=== PATIENT | male | born 1970 | race Caucasian/White ===

== ENCOUNTER 2017-05-14 11:55 | Inpatient (IN) ==
[2017-05-14] MEDS ORDERED: SODIUM CHLORIDE 0.9% 1,000 ML IV STA ×2 (12:19→14:53)
--- NOTE | 2017-05-14 12:23 | EKG Report ---
Stationary ECG Study [facility] ER Test Date: 05/14/2017 12:14:54 PM Pat Name: VEE MACHADO Department: Room: Gender: M Hospital Insurance Clerk: : 1970 Requested by: Jose Eldridge Order Number: [id number] Reading MD: VEGA FRIAS Intervals [place] Rate: 80 P: 52 SC: 158 QRS: 67 QRSD: 86 T: 38 QT: 339 QTc: 375 Interpretive Statements SINUS RHYTHM LOW QRS VOLTAGE IN PRECORDIAL LEADS Electronically Signed On 05-16-17 07:23:30 CDT by VEGA FRIAS [email or web address]
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
[2017-05-14 12:37] LABS: Basophils # 0.1 10*3/uL (0.0-0.2); Basophils % 0.5 % (0.0-0.8); Eosinophils # 0.6 10*3/uL (0.0-0.87); Eosinophils % 5.1 % (0.00-10.9); Hemoglobin 13.1 GM/DL (14.0-18.0); Immature Granulocytes % 0.4 %; Immature Granulocytes Absolute 0.05 #; Lymphocytes # 1.5 10*3/uL (1.4-4.0); Lymphocytes % 13.1 % (21.2-54.2); Mean Corpuscular HGB Conc 32.8 GM/DL (32-36); Mean Corpuscular Hemoglobin 28 PG (27-34); Mean Corpuscular Volume 84.7 FL (87-102); Mean Platelet Volume 10.5 FL (9.6-12.0); Monocytes # 0.7 10*3/uL (0.11-0.8); Neutrophils # 8.8 10*3/uL (1.4-7.4); Neutrophils % 74.9 % (38.7-73.9); Platelet Count 261 T/CUMM (130-400); Red Blood Count 4.72 MC/CUMM (3.8-5.5); Red Cell Distribution Width 15.9 % (9.3-17.3); White Blood Count 11.7 T/CUMM (4-12)
--- NOTE | 2017-05-14 12:43 | XRay Report ---
History: Shortness of breath Date: 05/14/2017 Study: Chest x-ray AP portable Comparison exam: August 26, 2016 The cardiac silhouette is upper normal in size. There is no mediastinal mass. The pulmonary vasculature is not engorged. There is no pleural effusion. There is a chronic lung nodule in the lingula which was noted be significantly calcified on the July 22, [address] There is no new mass or infiltrate. Osseous structures are unchanged. Impression: No acute process compared to the previous study. Chronic lingular lung nodule which was shown to be significantly calcified on the 2013 CT chest PROCEDURE INTERPRETED AT [facility] DEPARTMENT OF RADIOLOGY Final Report Signed by: Dr. Hina Orlando
[2017-05-14 13:15] LABS: Alanine Aminotransferase 11 U/L (16-61); Albumin 3.3 G/DL (3.4-5.0); Alkaline Phosphatase 107 U/L (45-117); Aspartate Amino Transferase 8 U/L (0-37); Bilirubin,Total < 0.39 MG/DL (0.2-1.0); Blood Urea Nitrogen 51 MG/DL (7-18); Calcium 8.6 MG/DL (8.5-10.1); Glucose 185 MG/DL (74-106); Magnesium 2.6 MG/DL (1.8-2.4); Osmolality,Calculated 288.1 MOS/KG (273-304); Potassium 4.6 MMOL/L (3.5-5.1); Sodium 135 MMOL/L (136-145); Total Protein 7.1 G/DL (6.4-8.3); Troponin I Only < 0.015 NG/ML (0.00-0.045)
[2017-05-14] MEDS ORDERED: cefTRIAXone 2,000 MG in SODIUM CHLORIDE 0.9% 100 ML IV ONE (13:45)
[2017-05-14] MEDS ORDERED: cefTRIAXone 1,000 MG VIAL ONE (13:45)
[2017-05-14 14:21] LABS: Apearance,Urine CLEAR (Clear); Bilirubin,Urine Negative (Negative); Blood, Urine Moderate mg/dL (Negative); Glucose,Urine (UA) Negative (Negative); Hyaline Casts,Urine 8 /LPF (0-3); Ketones,Urine Negative (Negative); Mucus,Urine Occasional /LPF (Occasional); Nitrite,Urine Negative (Negative); Protein,Urine Negative; RBC,Urine <1 /HPF (0-4); Urine Color Yellow (Yellow); Urine Specific Gravity 1.015 (1.001-1.035); Urine Urobilinogen < 2.0 EU/DL (0.2-1.0); WBC,Urine 1 /HPF (0-6)
[2017-05-14 15:03] LABS: Barbiturates Screen,Urine Negative (Negative); Benzodiazepines Screen,Urine Negative (Negative); Cannabinoid Screen,Urine Negative (Negative); Opiate Screen,Urine Positive (Negative); Phencyclidine Screen,Urine Negative (Negative)
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
[2017-05-14] MEDS ORDERED: GLUCAGON 1 MG VIAL IM PRN ×2 (15:25→16:31)
[2017-05-14] MEDS ORDERED: DEXTROSE 50% 25 GM/50 ML VIAL IV PRN (15:25)
[2017-05-14] MEDS ORDERED: DEXTROSE 50% 25 GM/50 ML SYRINGE IV PRN ×2 (16:00→16:31)
[2017-05-14] MEDS ORDERED: ACETAMINOPHEN 325 MG TABLET PO PRN (16:31)
[2017-05-14] MEDS ORDERED: ALBUTEROL 2.5 MG/3 ML NEB RESP TX PRN ×2 (16:31→19:00)
[2017-05-14] MEDS ORDERED: NICOTINE 21 MG/24 HR PATCH TRANSDERM PRN (16:31)
[2017-05-14] MEDS ORDERED: ONDANSETRON 4 MG/2 ML VIAL IV PRN (16:31)
[2017-05-14] MEDS: SODIUM CHLORIDE 0.9% 1,000 ML IV SCH ×2 (16:57→21:24)
[2017-05-14] MEDS ORDERED: ALBUTEROL 2.5 MG/3 ML NEB RESP TX SCH (17:00)
[2017-05-14] MEDS: INSULIN LISPRO 100 UNIT/ML SUBCUT SCH ×2 (17:06→21:22)
[2017-05-14] MEDS: ALBUTEROL 2.5 MG/3 ML NEB RESP TX SCH (19:54)
[2017-05-15] MEDS: SODIUM CHLORIDE 0.9% 1,000 ML IV SCH ×5 (02:24→17:47)
[2017-05-15 05:35] LABS: Basophils # 0.1 10*3/uL (0.0-0.2); Basophils % 0.8 % (0.0-0.8); Eosinophils # 0.4 10*3/uL (0.0-0.87); Eosinophils % 4.5 % (0.00-10.9); Hemoglobin 11.9 GM/DL (14.0-18.0); Immature Granulocytes % 0.3 %; Immature Granulocytes Absolute 0.03 #; Lymphocytes # 1.7 10*3/uL (1.4-4.0); Mean Corpuscular HGB Conc 32.2 GM/DL (32-36); Mean Corpuscular Hemoglobin 28 PG (27-34); Mean Corpuscular Volume 85.6 FL (87-102); Mean Platelet Volume 10.6 FL (9.6-12.0); Monocytes # 0.7 10*3/uL (0.11-0.8); Neutrophils % 67.4 % (38.7-73.9); Platelet Count 222 T/CUMM (130-400); Red Blood Count 4.32 MC/CUMM (3.8-5.5); Red Cell Distribution Width 15.9 % (9.3-17.3)
[2017-05-15 06:02] LABS: Lactic Acid 0.6 MMOL/L (0.4-2.0)
[2017-05-15 06:10] LABS: Calcium 8.2 MG/DL (8.5-10.1); Magnesium 2.3 MG/DL (1.8-2.4); Osmolality,Calculated 287.4 MOS/KG (273-304); Potassium 5.2 MMOL/L (3.5-5.1); Risk Ratio 4.35; Thyroid Stimulating Hormone 0.577 uIU/ml (0.358-3.74); VLDL CHOLESTEROL 47.4 MG/DL
[2017-05-15 07:05] LABS: Free T4 (Free Thyroxine) 0.93 NG/DL (0.76-1.46)
[2017-05-15] MEDS: INSULIN LISPRO 100 UNIT/ML SUBCUT SCH ×3 (07:44→17:46)
[2017-05-15] MEDS: ALBUTEROL 2.5 MG/3 ML NEB RESP TX SCH ×4 (07:49→19:04)
[2017-05-15 08:29] LABS: HIV Antigen/Antibody Result Nonreactive (Nonreactive)
[2017-05-15] MEDS: PANTOPRAZOLE 40 MG TABLET PO SCH (08:39)
[2017-05-15] MEDS: FLUoxetine 20 MG CAPSULE PO SCH (08:39)
[2017-05-15] MEDS ORDERED: PANTOPRAZOLE 40 MG TABLET PO SCH (09:00)
--- NOTE | 2017-05-15 09:42 | Hospitalist Progress Note ---
Assessment and Plan (1) Acute renal failure Status: Acute Assessment and plan: Serum creatinine and BUN are improving. Azotemia seems to be prerenal but I suspect there may be an incipient chronic kidney disease. This was verification. She does have a history of chronic hepatitis C which can result in vasculitis can cause renal insufficiency. Current Visit: No (2) Hepatitis C Status: Chronic Assessment and plan: 7 ongoing chronic problem being evaluated outpatient for treatment according to the patient. Current Visit: No (3) Hypovolemia dehydration Status: Acute Assessment and plan: Patient has had aggressive crystalloids infusions. He has demonstrated effective response. Current Visit: Yes (4) Syncopal episodes Status: Acute Assessment and plan: Subjective information given to dialysis suspicious for neurogenic syncope is. I wonder if seizure activity is not involved here. Intracranial space- occupying pathology is also possibility. For this reason neurology consultation is on the chart as well as an order for MRI of the brain. If the creatinine improves below 1.5 we can do a gadolinium MRI of if not then will do MRI without contrast. Continue telemetry monitoring for possibility of cardiogenic syncope. Current Visit: Yes (5) Hypotension Status: Acute Assessment and plan: Blood pressures have improved we will reduce IV fluids 200 mL/h using normal saline. Transfer patient to telemetry floor. Current Visit: Yes Hospitalist: Subjective Interval history: Patient has been seen interviewed and examined and chart has been reviewed. Mr. Crandall was admitted yesterday through the emergency room with a history of recurrent syncopal episodes. This has happened when he standing up there is no associated lightheadedness is associated nausea he does have it at times when he is driving. He acknowledges loss of consciousness. There is possibility this is a seizure activities. Mr. Crandall is a very heavy smoker history of heavy alcohol consumption several multiple tattoos on his body not sure about his HIV status. He has in the past been admitted to the hospital with a positive tox screen including amphetamines. Today his blood pressure is optimal with a mean arterial pressure around 70s. He was quite hypotensive on admission in the emergency room. His history of having been exposed to extremely hot environments a couple days prior to coming in so heat exhaustion is a possible contributor to the current issues though recurrent syncopal episodes in the history. He was admitted with an elevated creatinine of 0.3 yesterday she is down to 2.1 today. His total CK was only 144 yesterday; which rules out rhabdomyolysis. His blood pressures were low with mean arterial pressures well below 65 mmHg. Blood pressures responded to crystalloid infusion. Current blood pressure is 115/70 with mean arterial pressure of 85 mmHg. He is stable enough to be transferred to the [facility] for further evaluation and management and monitoring. MRI of the brain is been ordered and neurology consultation is also been ordered (to be seen tomorrow.) Exam - Constitutional Vitals: Period Temp Pulse Resp BP Sys/[place] Pulse Ox Last 24 Hr 97.9 F-98.3 F 64-75 15-96 71-119/40-76 93-98 General appearance: no acute distress, over weight - Head Head exam: Present: normocephalic, atraumatic - Eye Eye exam: Present: EOMI Pupils: Present: HERMILA - ENT ENT exam: Present: normal oropharynx - Respiratory Respiratory exam: Present: clear to auscultation bilaterally - Cardiovascular Cardiovascular exam: Present: regular rate and rhythm - GI/Abdominal GI/Abdominal exam: Present: normal bowel sounds, soft - Extremities Exam Extremities exam: Present: full ROM - Neurological Exam Neurological exam: Present: alert, oriented X3, CN II-XII intact - Psychiatric Psychiatric exam: Present: normal affect, normal mood - Skin Skin exam: Present: normal color, warm, dry, other (Patient has multiple tattoos on his body) Results - Labs CBC & BMP: 05/15/17 05:00 05/15/17 05:00 Lab Results: I have reviewed the past 24 hour labs (Noted a significant improvement in BUN and creatinine)
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
[2017-05-15 16:50] LABS: Apearance,Urine CLEAR (Clear); Bilirubin,Urine Negative (Negative); Blood, Urine Small mg/dL (Negative); Glucose,Urine (UA) Negative (Negative); Ketones,Urine Negative (Negative); Mucus,Urine Occasional /LPF (Occasional); Nitrite,Urine Negative (Negative); Protein,Urine Negative; Urine Color Colorless (Yellow); Urine Specific Gravity 1.006 (1.001-1.035); Urine Urobilinogen < 2.0 EU/DL (0.2-1.0); WBC,Urine <1 /HPF (0-6)
[2017-05-16] MEDS: INSULIN LISPRO 100 UNIT/ML SUBCUT SCH ×2 (00:23→08:19)
[2017-05-16] MEDS: SODIUM CHLORIDE 0.9% 1,000 ML IV SCH ×3 (00:25→10:17)
[2017-05-16 04:59] LABS: Basophils # 0.1 10*3/uL (0.0-0.2); Basophils % 0.6 % (0.0-0.8); Eosinophils # 0.4 10*3/uL (0.0-0.87); Eosinophils % 4.4 % (0.00-10.9); Hematocrit 40.5 VOL% (42.0-52.0); Hemoglobin 13.3 GM/DL (14.0-18.0); Immature Granulocytes % 0.3 %; Immature Granulocytes Absolute 0.02 #; Lymphocytes # 1.4 10*3/uL (1.4-4.0); Lymphocytes % 17.3 % (21.2-54.2); Mean Corpuscular HGB Conc 32.8 GM/DL (32-36); Mean Corpuscular Hemoglobin 28 PG (27-34); Mean Corpuscular Volume 83.7 FL (87-102); Mean Platelet Volume 10.1 FL (9.6-12.0); Monocytes # 0.5 10*3/uL (0.11-0.8); Monocytes % 6.3 % (1.7-12.7); Neutrophils # 5.6 10*3/uL (1.4-7.4); Neutrophils % 71.1 % (38.7-73.9); Platelet Count 223 T/CUMM (130-400); Red Blood Count 4.84 MC/CUMM (3.8-5.5); Red Cell Distribution Width 15.4 % (9.3-17.3); White Blood Count 7.9 T/CUMM (4-12)
[2017-05-16 05:33] LABS: Calcium 8.6 MG/DL (8.5-10.1); Magnesium 1.5 MG/DL (1.8-2.4); Osmolality,Calculated 282.3 MOS/KG (273-304); Potassium 4.7 MMOL/L (3.5-5.1)
[2017-05-16] MEDS: ALBUTEROL 2.5 MG/3 ML NEB RESP TX SCH (07:24)
[2017-05-16] MEDS ORDERED: PNEUMOCOCCAL VACCINE (23 VALENT) 0.5 ML VIAL IM ONE (08:00)
[2017-05-16 08:16] VITALS: BP 144/91
[2017-05-16] MEDS: FLUoxetine 20 MG CAPSULE PO SCH (08:31)
--- NOTE | 2017-05-16 08:31 | Nephrology Progress Note ---
Nephrology - PN: Subj Interval history: Creatinine 1.0. Elevated creatinine 2' prerenal azotemia. Exam (PN)-Nephrology - Vital Signs Vital signs: Period Temp Pulse Resp BP Sys/[place] Pulse Ox Last 24 Hr 97.5 F-99.4 F 63-112 16-22 129-144/70-91 91-99 - General Appearance General appearance: well-developed, well-nourished EENT: ATNC, PERRL Neck: no JVD, no thyromegaly Respiratory: no kyphosis, clear Cardiology: no murmurs, no rub Gastrointestinal: normoactive bowel sounds, no tenderness Integumentary: no rash, warm and dry Neurologic: no focal deficit, no asterixis Musculoskeletal: no deformities, no erythema Psychiatric: mood/affect appropriate, cooperative - Lab 05/16/17 04:47 05/16/17 04:47 Most recent lab results Calcium 8.6 MG/DL (8.5-10.1) 05/16/17 04:47 Magnesium 1.5 MG/DL (1.8-2.4) L 05/16/17 04:47 Assessment and Plan (1) Prerenal azotemia Problem details: resolving with volume resuscitation. Status: Resolved Assessment and plan: WIll sign off for now. Please call for any questions or concerns. Current Visit: Yes (2) Cystic kidney disease Status: Chronic Current Visit: No (3) Hepatitis C Status: Chronic Current Visit: No
[2017-05-16] MEDS: PANTOPRAZOLE 40 MG TABLET PO SCH (08:32)
--- NOTE | 2017-05-16 11:22 | Hospitalist Progress Note ---
Assessment and Plan (1) Acute renal failure Status: Acute Assessment and plan: This is purely acute kidney injury patient's renal function has resolved to a normal creatinine at this point. I have informed patient of these. Most likely is dehydration. (2) Hepatitis C Status: Chronic Assessment and plan: Planning on treatment on an outpatient. (3) Hypovolemia dehydration Status: Acute Assessment and plan: Resolved (4) Syncopal episodes Status: Acute Assessment and plan: Such events in the hospital however given the history of recurrent multiple events of like him to be seen by neurology does have an MRI of the brain done. (5) Hypotension Status: Acute Assessment and plan: Blood pressures been good Hospitalist: Subjective Interval history: Patient has been seen interviewed and examined chart has been reviewed. He is doing very well however this gentleman has a history of recurrent syncopal episodes was admitted to the hospital with acute kidney injury that has resolved with creatinine now normal. Because of recurrent syncopal episodes that I suspect the neurogenic in nature I want him to be seen by a neurologist I want to do an MRI of his brain today. He has agreed to have that done. Exam - Constitutional Vitals: Period Temp Pulse Resp BP Sys/Nogueira Pulse Ox Last 24 Hr 97.5 F-99.4 F 70-112 16-20 130-144/70-91 91-99 General appearance: over weight - Head Head exam: Present: normocephalic, atraumatic - Eye Eye exam: Present: EOMI Pupils: Present: HERMILA - Cardiovascular Cardiovascular exam: Present: regular rate and rhythm - GI/Abdominal GI/Abdominal exam: Present: normal bowel sounds, soft - Extremities Exam Extremities exam: Present: full ROM - Neurological Exam Neurological exam: Present: alert, oriented X3, CN II-XII intact - Psychiatric Psychiatric exam: Present: normal affect, normal mood - Skin Skin exam: Present: normal color, warm, dry Results - Labs CBC & BMP: 05/16/17 04:47 05/16/17 04:47 Lab Results: I have reviewed the past 24 hour labs
--- NOTE | 2017-05-16 11:36 | Event Note ---
Patient left AGAINST MEDICAL ADVICE (AMA)/discharge summary: Mr. Crandall is a 46 a gentleman admitted to the hospital with a syncopal episode one of many history of heat exposure 2 days prior to admission acute kidney injury and hypotension. With dehydration blood pressure came up and his urine output picked up his creatinine is was normal this morning. Because of recurrent syncopal episodes without any evidence of dysrhythmias on the monitor here my plan was to have him seen by a neurologist and have an MRI of the brain done. He agreed to have this done this morning however all of a sudden decided he has had enough of stating he wants to go home. I believe this gentleman needs evaluation for these recurrent syncopal episode that he reported on admission and aware acknowledged by his family member was in the room at the time of admission. She does left AGAINST MEDICAL ADVICE this will be the discharge summary for him. I refired to the progress note from this morning for details of his clinical picture. No contribution to his discharge medications and discharge plan; because patient left AGAINST MEDICAL ADVICE
[2017-05-17 12:06] LABS: HCV Ab Scrn w/Reflex to HCV PC Reactive (Negative)
[2017-05-19 16:48] LABS: Hepatitis C RNA Detect/Quant Undetected IU/mL (Undetected)
== END 2017-05-16 10:00 | disposition left against medical advice (07) | DRG 469 ==
LOC: N.ED 11:55 → N.EDINP 15:09 → N.ICU 16:29 → N.TELEN 05-15 10:43
PROVIDERS: ADMIT Internal Medicine Infectious Disease; ATTEND Internal Medicine Infectious Disease

== ENCOUNTER 2018-08-13 17:51 | Inpatient (IN) ==
[2018-08-13 18:28] LABS: Basophils # 0.1 10*3/uL (0.0-0.2); Basophils % 0.4 % (0.0-0.8); Eosinophils # 0.4 10*3/uL (0.0-0.87); Eosinophils % 3.7 % (0.00-10.9); Hematocrit 35.3 VOL% (42.0-52.0); Hemoglobin 10.7 GM/DL (14.0-18.0); Immature Granulocytes % 0.6 %; Immature Granulocytes Absolute 0.07 #; Lymphocytes # 1.1 10*3/uL (1.4-4.0); Lymphocytes % 9.4 % (21.2-54.2); Mean Corpuscular HGB Conc 30.3 GM/DL (32-36); Mean Corpuscular Hemoglobin 28 PG (27-34); Mean Platelet Volume 10.4 FL (9.6-12.0); Monocytes # 0.9 10*3/uL (0.11-0.8); Monocytes % 7.5 % (1.7-12.7); Neutrophils # 9.3 10*3/uL (1.4-7.4); Neutrophils % 78.4 % (38.7-73.9); Platelet Count 258 T/CUMM (130-400); Red Blood Count 3.88 MC/CUMM (3.8-5.5); Red Cell Distribution Width 15.9 % (9.3-17.3); White Blood Count 11.8 T/CUMM (4-12)
[2018-08-13 18:44] LABS: Alanine Aminotransferase 14 U/L (16-61); Albumin 3.5 G/DL (3.4-5.0); Alkaline Phosphatase 108 U/L (45-117); Amylase 52 U/L (25-115); Aspartate Amino Transferase 10 U/L (0-37); Bilirubin,Total < 0.39 MG/DL (0.2-1.0); Blood Urea Nitrogen 50 MG/DL (7-18); Calcium 8.8 MG/DL (8.5-10.1); Glucose 113 MG/DL (74-106); Osmolality,Calculated 296.1 MOS/KG (273-304); Sodium 142 MMOL/L (136-145); Total Protein 8.1 G/DL (6.4-8.3)
[2018-08-13 18:52] LABS: Potassium 6.1 MMOL/L (3.5-5.1)
[2018-08-13 19:52] LABS: INR 0.9; PT Patient Result 9.8 SECS; Partial Thromboplastin Time 28.4 SECS (0-40)
[2018-08-13] MEDS ORDERED: CALCIUM CHLORIDE 1,000 MG/10 ML SYRINGE IV STA (20:01)
[2018-08-13] MEDS ORDERED: ALBUTEROL NEB SOLN 5 MG/ML 20 ML/BOTTLE CONT NEB STA (20:01)
[2018-08-13] MEDS ORDERED: ONDANSETRON 4 MG/2 ML VIAL IV PRN (23:49)
[2018-08-13] MEDS ORDERED: GLUCAGON 1 MG VIAL IM PRN (23:49)
[2018-08-13] MEDS ORDERED: DEXTROSE 50% 25 GM/50 ML VIAL IV PRN (23:49)
[2018-08-14] MEDS ORDERED: BACLOFEN 10 MG TABLET PO PRN
[2018-08-14] MEDS ORDERED: ALBUTEROL 2.5 MG/3 ML NEB RESP TX PRN
[2018-08-14] MEDS ORDERED: QUEtiapine 100 MG TABLET PO SCH (00:30)
[2018-08-14 01:13] LABS: Apearance,Urine CLEAR (Clear); Bilirubin,Urine Negative (Negative); Blood, Urine Negative (Negative); Glucose,Urine (UA) Negative (Negative); Hyaline Casts,Urine 13 /LPF (0-3); Ketones,Urine Negative (Negative); Nitrite,Urine Negative (Negative); Protein,Urine Negative; Squamous Epithelial Cell,Urine Occasional /HPF (0-10); Urine Color Yellow (Yellow); Urine Specific Gravity 1.013 (1.001-1.035); Urine Urobilinogen < 2.0 EU/DL (0.2-1.0)
[2018-08-14] MEDS: SODIUM CHLORIDE 0.9% 1,000 ML IV SCH ×3 (01:15→17:20)
[2018-08-14 01:25] LABS: Barbiturates Screen,Urine Negative (Negative); Benzodiazepines Screen,Urine Negative (Negative); Cannabinoid Screen,Urine Negative (Negative); Opiate Screen,Urine Positive (Negative); Phencyclidine Screen,Urine Negative (Negative)
[2018-08-14] MEDS ORDERED: INFLUENZA VIRUS VACCINE 0.5 ML SYRINGE IM ONE (01:25)
[2018-08-14] MEDS: ALBUTEROL/IPRATROPIUM 3 ML NEB RESP TX SCH ×5 (01:38→18:30)
[2018-08-14 04:47] LABS: Basophils % 0.3 % (0.0-0.8); Eosinophils # 0.2 10*3/uL (0.0-0.87); Eosinophils % 1.9 % (0.00-10.9); Hematocrit 28.2 VOL% (42.0-52.0); Hemoglobin 8.4 GM/DL (14.0-18.0); Immature Granulocytes % 0.6 %; Immature Granulocytes Absolute 0.08 #; Lymphocytes # 0.8 10*3/uL (1.4-4.0); Lymphocytes % 6.1 % (21.2-54.2); Mean Corpuscular HGB Conc 29.8 GM/DL (32-36); Mean Corpuscular Hemoglobin 27 PG (27-34); Mean Platelet Volume 10.2 FL (9.6-12.0); Monocytes # 0.8 10*3/uL (0.11-0.8); Monocytes % 6.4 % (1.7-12.7); Neutrophils # 10.9 10*3/uL (1.4-7.4); Neutrophils % 84.7 % (38.7-73.9); Platelet Count 199 T/CUMM (130-400); Red Cell Distribution Width 15.9 % (9.3-17.3); White Blood Count 12.9 T/CUMM (4-12)
[2018-08-14 04:48] LABS: Basophils % 0.3 % (0.0-0.8); Eosinophils # 0.2 10*3/uL (0.0-0.87); Eosinophils % 1.8 % (0.00-10.9); Hematocrit 28.6 VOL% (42.0-52.0); Hemoglobin 8.3 GM/DL (14.0-18.0); Immature Granulocytes % 0.6 %; Immature Granulocytes Absolute 0.07 #; Lymphocytes # 0.7 10*3/uL (1.4-4.0); Lymphocytes % 5.8 % (21.2-54.2); Mean Corpuscular Hemoglobin 27 PG (27-34); Mean Corpuscular Volume 91.4 FL (87-102); Mean Platelet Volume 10.6 FL (9.6-12.0); Monocytes # 0.8 10*3/uL (0.11-0.8); Neutrophils # 10.7 10*3/uL (1.4-7.4); Neutrophils % 85.5 % (38.7-73.9); Platelet Count 203 T/CUMM (130-400); Red Blood Count 3.13 MC/CUMM (3.8-5.5); Red Cell Distribution Width 15.9 % (9.3-17.3); White Blood Count 12.5 T/CUMM (4-12)
[2018-08-14 05:04] LABS: Calcium 7.8 MG/DL (8.5-10.1); Osmolality,Calculated 292.1 MOS/KG (273-304); Potassium 5.5 MMOL/L (3.5-5.1)
[2018-08-14 05:08] LABS: % Iron Saturation 5.2 % (18-50); Ferritin 80.3 ng/ml (26-388)
[2018-08-14 05:24] LABS: Vitamin B12 289 PG/ML (211-911)
[2018-08-14] MEDS: INSULIN LISPRO 100 UNIT/ML SUBCUT SCH ×4 (07:29→21:14)
[2018-08-14] MEDS: LACTULOSE 20 GM/30 ML UDCUP PO SCH ×3 (07:29→17:20)
[2018-08-14 08:29] LABS: Sedimentation Rate-Westergren 51 MM/HR (0-15)
[2018-08-14] MEDS: GEMFIBROZIL 600 MG TABLET PO SCH ×2 (08:38→16:02)
[2018-08-14] MEDS: METOPROLOL SUCCINATE XL 50 MG TABLET PO SCH (08:38)
[2018-08-14] MEDS: amLODIPine 10 MG TABLET PO SCH (08:38)
[2018-08-14] MEDS ORDERED: FUROSEMIDE 40 MG/4 ML VIAL IV SCH (16:00)
[2018-08-14] MEDS: FUROSEMIDE 40 MG/4 ML VIAL IV SCH (16:13)
[2018-08-14] MEDS: PIPERACILLIN/TAZOBACTAM 3,375 MG in SODIUM CHLORIDE 0.9% 100 ML IV SCH (18:18)
[2018-08-14] MEDS: SODIUM HYPOCHLORITE 0.25% IRRIG 473 ML BOTTLE TOP SCH (21:14)
[2018-08-15] MEDS: SODIUM CHLORIDE 0.9% 1,000 ML IV SCH ×2 (01:20→23:08)
[2018-08-15] MEDS: LACTULOSE 20 GM/30 ML UDCUP PO SCH ×4 (01:30→17:18)
[2018-08-15] MEDS: PIPERACILLIN/TAZOBACTAM 3,375 MG in SODIUM CHLORIDE 0.9% 100 ML IV SCH ×3 (02:14→16:30)
[2018-08-15 05:27] LABS: Bilirubin,Total 0.4 MG/DL (0.2-1.0); Osmolality,Calculated 281.7 MOS/KG (273-304); Potassium 4.9 MMOL/L (3.5-5.1); Total Protein 7.8 G/DL (6.4-8.3)
[2018-08-15 06:03] LABS: Basophils # 0.1 10*3/uL (0.0-0.2); Basophils % 0.5 % (0.0-0.8); Eosinophils # 0.3 10*3/uL (0.0-0.87); Eosinophils % 2.6 % (0.00-10.9); Hematocrit 36.4 VOL% (42.0-52.0); Immature Granulocytes % 2.1 %; Immature Granulocytes Absolute 0.26 #; Lymphocytes # 1.3 10*3/uL (1.4-4.0); Lymphocytes % 10.7 % (21.2-54.2); Mean Corpuscular HGB Conc 30.5 GM/DL (32-36); Mean Corpuscular Hemoglobin 27 PG (27-34); Mean Corpuscular Volume 87.3 FL (87-102); Mean Platelet Volume 10.1 FL (9.6-12.0); Monocytes # 0.8 10*3/uL (0.11-0.8); Monocytes % 6.2 % (1.7-12.7); Neutrophils # 9.6 10*3/uL (1.4-7.4); Neutrophils % 77.9 % (38.7-73.9); Red Cell Distribution Width 15.8 % (9.3-17.3); White Blood Count 12.4 T/CUMM (4-12)
[2018-08-15 06:06] LABS: Hemoglobin 11.1 GM/DL (14.0-18.0); Platelet Count 274 T/CUMM (130-400); Red Blood Count 4.17 MC/CUMM (3.8-5.5)
[2018-08-15] MEDS: ALBUTEROL/IPRATROPIUM 3 ML NEB RESP TX SCH ×4 (07:20→20:00)
[2018-08-15] MEDS: INSULIN LISPRO 100 UNIT/ML SUBCUT SCH ×4 (08:07→22:21)
[2018-08-15] MEDS: METOPROLOL SUCCINATE XL 50 MG TABLET PO SCH (08:08)
[2018-08-15] MEDS: amLODIPine 10 MG TABLET PO SCH (08:08)
[2018-08-15] MEDS: FUROSEMIDE 40 MG/4 ML VIAL IV SCH (08:09)
[2018-08-15] MEDS: SODIUM HYPOCHLORITE 0.25% IRRIG 473 ML BOTTLE TOP SCH ×2 (08:09→22:21)
[2018-08-15] MEDS: GEMFIBROZIL 600 MG TABLET PO SCH ×2 (08:09→17:07)
[2018-08-15] MEDS ORDERED: PANTOPRAZOLE 40 MG VIAL IV ONE (08:27)
[2018-08-15] MEDS ORDERED: LIDOCAINE 1% 20 ML VIAL ONE (14:49)
[2018-08-15] MEDS ORDERED: PROPOFOL 200 MG/20 ML VIAL IV ONE (17:32)
[2018-08-15] MEDS ORDERED: MIDAZOLAM 2 MG/2 ML VIAL ONE (17:33)
[2018-08-15] MEDS ORDERED: fentaNYL 100 MCG/2 ML VIAL ONE (17:33)
[2018-08-15] MEDS ORDERED: SEVOFLURANE 1 UNIT/15 MINUTE INH ONE (17:33)
[2018-08-15] MEDS ORDERED: ONDANSETRON 4 MG/2 ML VIAL ONE (17:33)
[2018-08-16] MEDS: LACTULOSE 20 GM/30 ML UDCUP PO SCH ×4 (00:38→17:53)
[2018-08-16] MEDS: PIPERACILLIN/TAZOBACTAM 3,375 MG in SODIUM CHLORIDE 0.9% 100 ML IV SCH ×3 (01:22→19:38)
[2018-08-16 05:49] LABS: Basophils # 0.1 10*3/uL (0.0-0.2); Basophils % 0.4 % (0.0-0.8); Eosinophils # 0.4 10*3/uL (0.0-0.87); Eosinophils % 2.7 % (0.00-10.9); Hematocrit 35.6 VOL% (42.0-52.0); Immature Granulocytes % 1.6 %; Immature Granulocytes Absolute 0.23 #; Lymphocytes # 1.5 10*3/uL (1.4-4.0); Lymphocytes % 10.5 % (21.2-54.2); Mean Corpuscular HGB Conc 30.9 GM/DL (32-36); Mean Corpuscular Hemoglobin 27 PG (27-34); Mean Corpuscular Volume 87.9 FL (87-102); Mean Platelet Volume 9.8 FL (9.6-12.0); Monocytes # 0.9 10*3/uL (0.11-0.8); Monocytes % 6.3 % (1.7-12.7); Neutrophils # 11.1 10*3/uL (1.4-7.4); Neutrophils % 78.5 % (38.7-73.9); Platelet Count 267 T/CUMM (130-400); Red Blood Count 4.05 MC/CUMM (3.8-5.5); Red Cell Distribution Width 15.2 % (9.3-17.3); White Blood Count 14.1 T/CUMM (4-12)
[2018-08-16 06:13] LABS: Albumin 3.2 G/DL (3.4-5.0); Bilirubin,Total 0.9 MG/DL (0.2-1.0); Calcium 8.6 MG/DL (8.5-10.1); Osmolality,Calculated 277.8 MOS/KG (273-304); Potassium 4.5 MMOL/L (3.5-5.1); Total Protein 7.6 G/DL (6.4-8.3)
[2018-08-16] MEDS: ALBUTEROL/IPRATROPIUM 3 ML NEB RESP TX SCH ×4 (07:07→19:09)
[2018-08-16] MEDS: INSULIN LISPRO 100 UNIT/ML SUBCUT SCH ×3 (07:30→18:47)
[2018-08-16] MEDS: SODIUM HYPOCHLORITE 0.25% IRRIG 473 ML BOTTLE TOP SCH (09:00)
[2018-08-16] MEDS: FUROSEMIDE 40 MG/4 ML VIAL IV SCH (10:24)
[2018-08-16] MEDS: METOPROLOL SUCCINATE XL 50 MG TABLET PO SCH (10:24)
[2018-08-16] MEDS: amLODIPine 10 MG TABLET PO SCH (10:24)
[2018-08-16] MEDS: GEMFIBROZIL 600 MG TABLET PO SCH ×2 (10:27→19:38)
[2018-08-17] MEDS: LACTULOSE 20 GM/30 ML UDCUP PO SCH ×5 (00:45→23:43)
[2018-08-17] MEDS: INSULIN LISPRO 100 UNIT/ML SUBCUT SCH ×5 (00:45→21:44)
[2018-08-17] MEDS: ALBUTEROL/IPRATROPIUM 3 ML NEB RESP TX SCH ×4 (01:48→19:17)
[2018-08-17] MEDS: PIPERACILLIN/TAZOBACTAM 3,375 MG in SODIUM CHLORIDE 0.9% 100 ML IV SCH (03:24)
[2018-08-17] MEDS: SODIUM HYPOCHLORITE 0.25% IRRIG 473 ML BOTTLE TOP SCH ×2 (03:30→10:00)
[2018-08-17 07:36] LABS: Basophils # 0.1 10*3/uL (0.0-0.2); Basophils % 0.6 % (0.0-0.8); Eosinophils # 0.5 10*3/uL (0.0-0.87); Eosinophils % 3.7 % (0.00-10.9); Hematocrit 36.6 VOL% (42.0-52.0); Hemoglobin 11.4 GM/DL (14.0-18.0); Immature Granulocytes % 2.6 %; Immature Granulocytes Absolute 0.36 #; Lymphocytes # 1.6 10*3/uL (1.4-4.0); Lymphocytes % 11.7 % (21.2-54.2); Mean Corpuscular HGB Conc 31.1 GM/DL (32-36); Mean Corpuscular Hemoglobin 27 PG (27-34); Mean Corpuscular Volume 85.5 FL (87-102); Mean Platelet Volume 9.7 FL (9.6-12.0); Monocytes # 1.1 10*3/uL (0.11-0.8); Monocytes % 7.6 % (1.7-12.7); Neutrophils # 10.3 10*3/uL (1.4-7.4); Neutrophils % 73.8 % (38.7-73.9); Platelet Count 279 T/CUMM (130-400); Red Blood Count 4.28 MC/CUMM (3.8-5.5); Red Cell Distribution Width 14.6 % (9.3-17.3)
[2018-08-17 07:53] LABS: Calcium 8.7 MG/DL (8.5-10.1); Osmolality,Calculated 280.7 MOS/KG (273-304); Potassium 3.7 MMOL/L (3.5-5.1)
[2018-08-17] MEDS: GEMFIBROZIL 600 MG TABLET PO SCH ×2 (09:03→17:50)
[2018-08-17] MEDS: METOPROLOL SUCCINATE XL 50 MG TABLET PO SCH (09:04)
[2018-08-17] MEDS: FUROSEMIDE 40 MG/4 ML VIAL IV SCH (09:04)
[2018-08-17] MEDS: amLODIPine 10 MG TABLET PO SCH (09:06)
[2018-08-17] MEDS: VANCOMYCIN INJ 1,500 MG in SODIUM CHLORIDE 0.9% 500 ML IV SCH ×2 (14:08→17:39)
[2018-08-17] MEDS: SODIUM CHLORIDE 0.9% 1,000 ML IV SCH ×2 (20:18→21:43)
[2018-08-18] MEDS: ALBUTEROL/IPRATROPIUM 3 ML NEB RESP TX SCH ×2 (00:33→07:58)
[2018-08-18] MEDS: VANCOMYCIN INJ 1,500 MG in SODIUM CHLORIDE 0.9% 500 ML IV SCH (01:21)
[2018-08-18] MEDS: SODIUM HYPOCHLORITE 0.25% IRRIG 473 ML BOTTLE TOP SCH ×2 (02:04→10:30)
[2018-08-18] MEDS: LACTULOSE 20 GM/30 ML UDCUP PO SCH ×2 (05:01→11:38)
[2018-08-18 07:36] LABS: Basophils # 0.1 10*3/uL (0.0-0.2); Basophils % 0.7 % (0.0-0.8); Eosinophils # 0.6 10*3/uL (0.0-0.87); Eosinophils % 4.6 % (0.00-10.9); Hematocrit 40.9 VOL% (42.0-52.0); Hemoglobin 12.9 GM/DL (14.0-18.0); Immature Granulocytes % 4.1 %; Immature Granulocytes Absolute 0.54 #; Lymphocytes # 1.3 10*3/uL (1.4-4.0); Mean Corpuscular HGB Conc 31.5 GM/DL (32-36); Mean Corpuscular Hemoglobin 27 PG (27-34); Mean Corpuscular Volume 86.1 FL (87-102); Mean Platelet Volume 10.1 FL (9.6-12.0); Monocytes # 0.9 10*3/uL (0.11-0.8); Neutrophils # 9.7 10*3/uL (1.4-7.4); Neutrophils % 73.6 % (38.7-73.9); Platelet Count 282 T/CUMM (130-400); Red Blood Count 4.75 MC/CUMM (3.8-5.5); Red Cell Distribution Width 14.7 % (9.3-17.3); White Blood Count 13.1 T/CUMM (4-12)
[2018-08-18 07:42] VITALS: BP 146/93
[2018-08-18 07:52] LABS: Calcium 8.8 MG/DL (8.5-10.1); Osmolality,Calculated 281.5 MOS/KG (273-304)
[2018-08-18] MEDS: INSULIN LISPRO 100 UNIT/ML SUBCUT SCH ×2 (07:58→11:38)
[2018-08-18 08:06] LABS: Band Neutrophils 2 % (0-10); Eosinophils 8 % (0-10); Hypochromasia Slight; Lymphocytes 7 % (20-55); Microcytosis Slight; Platelet Estimate Normal; Polychromasia Slight; Segmented Neutrophils 74 % (50-85); Total Cells Counted 100
[2018-08-18] MEDS: METOPROLOL SUCCINATE XL 50 MG TABLET PO SCH (08:50)
[2018-08-18] MEDS: GEMFIBROZIL 600 MG TABLET PO SCH (08:50)
[2018-08-18] MEDS: amLODIPine 10 MG TABLET PO SCH (08:50)
[2018-08-18] MEDS: FUROSEMIDE 40 MG/4 ML VIAL IV SCH (08:51)
== END 2018-08-18 11:55 | disposition home or self-care (01) | DRG 469 ==
LOC: N.ED 17:51 → N.EDINP 23:00 → SUATTDRO 23:00 → N.5E 23:25
PROVIDERS: ADMIT Internal Medicine; ATTEND Internal Medicine Infectious Disease